=== PATIENT | female | born 1975 | race Two or more races ===

== ENCOUNTER → 2025-03-31 | Outpatient (CLI) | payer BC, SELFPAY ==
[2025-03-31 08:53] LABS: Collection Type, Urine Clean Catch
[2025-03-31 09:10] LABS: Basophils # (Auto) 0.0 Thou/mm3 (0.0-0.2); Basophils % (Auto) 1 % (0-2.5); Eosinophils # (Auto) 0.1 Thou/mm3 (0.0-0.5); Eosinophils % (Auto) 2 % (0-10); Hematocrit 41.6 % (36.0-46.0); Hemoglobin 13.9 g/dL (12.0-16.0); Immature Granulocytes Auto 0.01 Thou/mm3 (0.00-0.00); Lymphocytes # (Auto) 1.5 Thou/mm3 (1.0-4.8); Lymphocytes % (Auto) 32 % (10-50); Mean Corpuscular HGB Conc 33.4 g/dl (31.0-37.0); Mean Corpuscular Hemoglobin 30.7 pg (25.0-35.0); Mean Corpuscular Volume 92 fL (80-100); Monocytes # (Auto) 0.5 Thou/mm3 (0.0-0.8); Monocytes % (Auto) 10 % (0-12); Neutrophils # (Auto) 2.6 Thou/mm3 (1.8-7.7); Neutrophils % (Auto) 54 % (37-80); Nucleated Red Blood Cell # 0.00 Thou/mm3 (0.00-0.00); Nucleated Red Blood Cell % 0 /100 WBC (0); Platelet Count 208 Thou/mm3 (140-440); RDW Standard Deviation 44.8 fL (36.4-46.3); Red Blood Count 4.53 Miln/mm3 (4.00-5.20); White Blood Count 4.8 Thou/mm3 (3.6-11.0)
[2025-03-31 09:15] LABS: Bacteria,Urine Rare; Bilirubin,Urine Negative (Negative); Blood,Urine 1+ (Negative); Clarity,Urine Clear (Clear/Hazy); Color,Urine Yellow (Lt Yel-Yel); Culture Indicated,Urine Not Indicated; Glucose, Urine Negative (Negative); Ketones,Urine Negative (Negative); Leukocyte Esterase,Urine Negative (Negative); Nitrite,Urine Negative (Negative); PH,Urine 6.5 (5.0-7.0); Protein,Urine Negative (Neg - Trace); RBC,Urine 8 /hpf (0-3); Specific Gravity,Urine 1.023 (1.001-1.035); Squamous Epithelial Cell,Urine 6 /hpf (0-5); Urobilinogen,Urine Negative mg/dL (0.0-1.0); WBC,Urine 1 /hpf (0-5)
[2025-03-31 09:26] LABS: Glucose Estimated Average 120 mg/dL (80-131); Hemoglobin A1C 5.8 % Hgb (4.8-6.0)
[2025-03-31 09:28] LABS: Vitamin B12 428 pg/mL (211-911); Vitamin D 25 Hydroxy Total 24.1 ng/mL (7.3-40.2)
[2025-03-31 09:32] LABS: Alanine Aminotransferase 12 U/L (10-49); Albumin, Serum 4.3 gm/dL (3.5-5.0); Albumin/Globulin Ratio 1.5 (1.2-2.2); Alkaline Phosphatase 121 U/L (46-116); Anion Gap 9 (7-16); Aspartate Amino Transferase 32 U/L (0-34); BUN/Creatinine Ratio 13 Ratio (12-20); Bilirubin,Total 0.6 mg/dL (0.3-1.2); Blood Urea Nitrogen 10 mg/dL (9-23); Calcium 9.4 mg/dL (8.3-10.6); Calcium (Corrected) 9.4 mg/dL (8.5-10.1); Carbon Dioxide 27.1 mMol/L (20.0-31.0); Cardiac Risk Estimate 4.3 RATIO (3.7-5.6); Chloride 106 mMol/L (98-107); Cholesterol 191 mg/dL (132-200); Creatinine (Component) 0.8 mg/dL (0.6-1.3); Globulin 2.9 gm/dL (2.3-3.5); Glucose 108 mg/dL (74-106); HDL Cholesterol 44 mg/dL (40-60); LDL Cholesterol,Calculated 123 mg/dL (0-130); Osmolality,Calculated 283 (275-295); Potassium 4.8 mMol/L (3.4-5.1); Sodium 142 mMol/L (136-145); Thyroid Stimulating Hormone 7.68 uIU/mL (0.55-4.78); Total Protein 7.2 gm/dL (5.7-8.2); Triglycerides 118 mg/dL (30-150); eGFR > 60 See Note
[2025-04-05 06:48] LABS: Fecal Globin Result NOT DETECTED (NOT DETECTED)
== END | disposition home or self-care (01) ==
LOC: COPL 08:05
PROVIDERS: PCP Family Medicine; Referring Provider Physician Assistant; Visit Provider Physician Assistant
DX: Z00.00 Encounter for general adult medical examination without abnormal findings (principal); E55.9 Vitamin D deficiency, unspecified; E78.5 Hyperlipidemia, unspecified; Z83.3 Family history of diabetes mellitus; Z12.11 Encounter for screening for malignant neoplasm of colon
CPT/HCPCS: 36415; 80053; 80061; 81001; 82274; 82306; 82607; 83036; 84443; 85025; G0328

== ENCOUNTER → 2025-04-27 | Outpatient (CLI) | payer BC, SELFPAY ==
--- NOTE | 2025-04-27 15:15 | XR_ITS ---
Examination: Screening digital mammography, bilateral Computer aided detection 3-D breast Tomosynthesis, bilateral Date and time of exam: April 27, 2025, 1509 hours Compared to mammograms dating to October 30, 2016 Indication: Screening Technique: Nonmagnified MLO, CC views of the breasts to been obtained, reconstructed from 3-D Tomosynthesis images. R2 computer aided detection program utilized for evaluation of suspicious masses and/or abnormal calcifications. 3-D Tomosynthesis images obtained. Findings: Scattered areas of fibroglandular density. 7 mm partially circumscribed nodule inner lower left breast Impression: BI-RADS Category 0: Incomplete: Need additional imaging evaluation Recommend follow-up spot tomographic views of 7 mm partially circumscribed nodule inner lower left breast as well as left breast sonography to complete workup
== END | disposition home or self-care (01) ==
PROVIDERS: Referring Provider Physician Assistant; Visit Provider Physician Assistant
DX: Z12.31 Encounter for screening mammogram for malignant neoplasm of breast (principal); N63.24 Unspecified lump in the left breast, lower inner quadrant
CPT/HCPCS: 77063; 77067

== ENCOUNTER 2025-06-13 07:25 | Day surgery (SDC) | payer BC, SELFPAY ==
[2025-06-10 13:31] VITALS: BMI 36.8
[2025-06-13] VITALS (9 sets, daily range): BP systolic 117–165; BP diastolic 75–97; PULSE 57–84; RESP 12–20; TEMP 36.5–36.7; O2SAT 93–99; BMI 36.5
[2025-06-13] MEDS: MIDAZOLAM INJ 1 MG/ML VIAL 2 ML (ASD USE ONLY) 2 MG IVP (09:30)
[2025-06-13] MEDS: SODIUM CHLORIDE 0.9% 500 ML 500 ML 20 ML IV (09:30)
[2025-06-13] MEDS: fentaNYL CIT INJ 50 mCg/ML AMP 2ML (ASD USE ONLY) IVP (09:31)
--- NOTE | 2025-06-13 10:09 | SUR.PHASEII ---
0955 Pt more awake and alert. Denies pain or N.v. Abd remains soft. Rubén Po fluids.
--- NOTE | 2025-06-13 10:48 | SUR.PHASEII ---
1024 Pt assessment unchanged. No complaints. Amb with steady gait. Able to dress self. Pt and given in dc instructions. Both state understanding. Pt meets dc criteria-to home.
== END 2025-06-13 10:23 | disposition home or self-care (01) ==
PROVIDERS: PCP Family Medicine; Referring Provider Specialist; Visit Provider Specialist
PROC: 0DBE8ZX Excision of Large Intestine, Via Natural or Artificial Opening Endoscopic, Diagnostic (ICD-10-PCS; CPT 45380; principal; 2025-06-13 08:30)
DX: Z12.11 Encounter for screening for malignant neoplasm of colon (principal); K64.1 Second degree hemorrhoids
CPT/HCPCS: 45378; 81025; A4649; J1200; J2250; J3010; J7999

== ENCOUNTER → 2025-06-17 | Outpatient (CLI) | payer BC, SELFPAY ==
[2025-06-17 09:05] LABS: Free T4 (Free Thyroxine) 1.05 ng/dL (0.89-1.76); Thyroid Stimulating Hormone 3.50 uIU/mL (0.55-4.78)
== END | disposition home or self-care (01) ==
LOC: COPL 07:57
PROVIDERS: PCP Family Medicine; Referring Provider Registered Nurse; Visit Provider Registered Nurse
DX: E03.9 Hypothyroidism, unspecified (principal)
CPT/HCPCS: 36415; 84439; 84443

== ENCOUNTER → 2025-07-11 | Outpatient (CLI) | payer BC, SELFPAY ==
--- NOTE | 2025-07-11 15:15 | XR_ITS ---
Examination: Breast ultrasound, unilateral, left complete Date and time of exam: July 11, 2025, 1519 hours, comparison November 15, 2019 INDICATIONS: Mammogram April 27, 2025 7 mm nodule inner lower left breast Technique: Real-time chaney scale ultrasonographic imaging performed left breast including all 4 quadrants as well as nipple retroareolar and axillary region. Findings: 2:00 nodule lobular margins 10 x 6 mm 2:00 cyst 5 x 4 mm 5:00 nodule circumscribed 6 x 5 mm 5:00 cyst 5 x 5 mm Dilated ducts IMPRESSION: BI-RADS Category 3: Probably benign findings Recommend 1 additional 6-month left breast sonogram follow-up to document stability of solid nodules described above
--- NOTE | 2025-07-11 15:45 | XR_ITS ---
Examination: Diagnostic digital mammography, unilateral, left Computer aided detection 3-D breast Tomosynthesis, unilateral Date and time of exam: 07/11/2025, 3:40 p.m. Comparisons: April 2018 through April 2025 Indications: Nodule medial left breast. Technique: Nonmagnified MLO, CC views of the left breast have been obtained, reconstructed from 3-D Tomosynthesis images. R2 computer aided detection program utilized for evaluation of suspicious masses and/or abnormal calcifications. 3-D Tomosynthesis images obtained. Technologist: Findings: There are scattered areas of fibroglandular density. 5 mm asymmetry persists in the posterior medial breast and appears benign. Otherwise, no evidence of abnormal masses or suspicious calcifications. Impression: BI-RADS category 2: Benign findings Recommend 1 year follow-up mammogram
== END | disposition home or self-care (01) ==
LOC: CDIM 14:56
PROVIDERS: Referring Provider Physician Assistant; Visit Provider Physician Assistant
DX: R92.322 Mammographic fibroglandular density, left breast (principal); N63.21 Unspecified lump in the left breast, upper outer quadrant; N63.23 Unspecified lump in the left breast, lower outer quadrant
CPT/HCPCS: 76641; 77061; 77065; G0279